=== PATIENT | female | born 1945 ===

== ENCOUNTER 2018-10-16 10:42 | Day surgery (SDC) | payer OTHER ==
[2018-10-16 10:52] VITALS: BMI 31.2
[2018-10-16 11:03] VITALS: PULSE 74; RESP 18; TEMP 97.7; O2SAT 97
[2018-10-16] MEDS ORDERED: Sodium Chloride 0.9% 1,000 ML IV SCH (11:15)
--- NOTE | 2018-10-16 11:33 | ED PDOC ---
Arrival/HPI - General Historian: Patient, Family - History of Present Illness Narrative History of Present Illness (Text): 10/16/18 11:29 Pt is a 73 yo female with a PMH of atrial fibrillation, hypertension, hyperlipidemia, migraines, TIA, GERD who presents to the ED complaining of chest pain for the past few weeks. Pt states she has been having 8/10 pressure like chest pain with exertion which radiates to her jaw, shoulders and down her left arm. Pt states the pain has gotten progressively worse and prompted her to contact Dr De La Rosa who sent her to the emergency department. Time/Duration: < month Symptom Onset: Gradual Symptom Course: Worsening Quality: Pressure Severity Level: 8 Context: Walking, Exertion <Nils Black - Last Filed: 10/16/18 17:12> <Zach Diamond DO - Last Filed: 10/16/18 19:52> - General Chief Complaint: Chest Pain Past Medical History - Infectious Disease Hx of Infectious Diseases: None - Reproductive Menopause: No - Cardiac Hx Cardiac Disorders: Yes Hx Atrial Fibrillation: Yes Hx Hypertension: Yes - Pulmonary Hx Respiratory Disorders: No - Neurological Hx Neurological Disorder: No Hx Transient Ischemic Attacks (TIA): Yes (1 month) - HEENT Hx HEENT Disorder: No - Renal Hx Renal Disorder: No - Endocrine/Metabolic Hx Endocrine Disorders: No - Hematological/Oncological Hx Blood Disorders: No - Integumentary Hx Dermatological Disorder: No - Musculoskeletal/Rheumatological Hx Musculoskeletal Disorders: No - Gastrointestinal Hx Gastrointestinal Disorders: No - Genitourinary/Gynecological Hx Genitourinary Disorders: No - Psychiatric Hx Psychophysiologic Disorder: Yes Hx Anxiety: Yes Hx Substance Use: No - Surgical History Hx Hysterectomy: Yes (1 year ago) - Anesthesia Hx Anesthesia: Yes Hx Anesthesia Reactions: No Hx Malignant Hyperthermia: No <Nils Black - Last Filed: 10/16/18 17:12> Family/Social History Family/Social History: CVA/TIA, Hypertension Smoking Status: Never Smoked Hx Alcohol Use: No Hx Substance Use: No <Nils Black - Last Filed: 10/16/18 17:12> Allergies/Home Meds <Nils Black - Last Filed: 10/16/18 17:12> <Zach Diamond DO - Last Filed: 10/16/18 19:52> Allergies/Adverse Reactions: Allergies No Known Allergies Allergy (Verified 10/16/18 10:52) Home Medications: Home Meds Medication Instructions Recorded Confirmed Apixaban [Eliquis] 5 mg PO DAILY 10/16/18 10/16/18 Aspirin [Aspirin Chewable] 81 mg PO DAILY 10/16/18 10/16/18 Clopidogrel [Plavix] 75 mg PO DAILY 10/16/18 10/16/18 Diltiazem HCl [Diltiazem ER] 180 mg PO DAILY 10/16/18 10/16/18 Escitalopram [Lexapro] 10 mg PO DAILY 10/16/18 10/16/18 Isosorbide Mononitrate [Isosorbide 30 mg PO DAILY 10/16/18 10/16/18 Mononitrate ER] Losartan [Cozaar] 100 mg PO DAILY 10/16/18 10/16/18 busPIRone [Buspar] 10 mg PO DAILY 10/16/18 10/16/18 Physical Exam Vital Signs Reviewed: Yes Vital Signs Temp Pulse Resp BP Pulse Ox 10/16/18 10:42 97.7 F 74 18 136/77 97 Temperature: Afebrile Blood Pressure: Normal Pulse: Regular Respiratory Rate: Normal Appearance: Positive for: Well-Appearing Mental Status: Positive for: Alert and Oriented X 3 - Systems Exam Head: Present: Atraumatic, Normocephalic Respiratory/Chest: Present: Clear to Auscultation, Good Air Exchange. No: Respiratory Distress, Accessory Muscle Use Cardiovascular: Present: Regular Rate and Rhythm, Normal S1, S2. No: Murmurs <Nils Black - Last Filed: 10/16/18 17:12> Vital Signs Temp Pulse Resp BP Pulse Ox 10/16/18 10:42 97.7 F 74 18 136/77 97 <Zach Diamond DO - Last Filed: 10/16/18 19:52> Medical Decision Making ED Course and Treatment: 10/16/18 12:15 CBC- WBC 11.7 CMP- K 5.7 UA EKG IVF NPO spoke with Dr De La Rosa who agrees with giving the pt 15 mg of Kayexalate pt will go to cardiac skilled laborer with Dr De La Rosa later today Pt seen, examined, assessment and plan discussed with Dr Dara Black PGY1 10/16/18 12:20 - RAD Interpretation Radiology Orders: 10/16/18 11:06 CHEST PORTABLE [RAD] Stat - Medication Orders Current Medication Orders: Sodium Chloride (Sodium Chloride 0.9%) 1,000 mls @ 100 mls/hr IV .Q10H SHIREEN <Nils Black - Last Filed: 10/16/18 17:12> - Lab Interpretations Lab Results: PT 13.4 SECONDS (9.4-12.5) H 10/16/18 11:30 INR 1.19 10/16/18 11:30 APTT 43.7 Seconds (26.9-38.3) H 10/16/18 11:30 Troponin I 0.01 ng/mL 10/16/18 11:30 NT-Pro-B Natriuret Pep 3280 pg/mL (0-450) H 10/16/18 11:30 Total Bilirubin 0.4 mg/dL (0.2-1.3) 10/16/18 11:30 AST 19 U/L (14-36) 10/16/18 11:30 ALT 15 U/L (7-56) 10/16/18 11:30 Alkaline Phosphatase 84 U/L (38-126) 10/16/18 11:30 Total Protein 7.1 g/dL (5.8-8.3) 10/16/18 11:30 Albumin 4.0 g/dL (3.0-4.8) 10/16/18 11:30 Globulin 3.0 gm/dL 10/16/18 11:30 Albumin/Globulin Ratio 1.3 (1.1-1.8) 10/16/18 11:30 Urine Color Yellow (YELLOW) 10/16/18 12:06 Urine Appearance Clear (CLEAR) 10/16/18 12:06 Urine pH 5.5 (4.7-8.0) 10/16/18 12:06 Ur Specific [place] 1.020 (1.005-1.035) 10/16/18 12:06 Urine Protein Negative mg/dL (<30 mg/dL) 10/16/18 12:06 Urine Glucose (UA) Negative mg/dL (NEGATIVE) 10/16/18 12:06 Urine Ketones Negative mg/dL (NEGATIVE) 10/16/18 12:06 Urine Blood Negative (NEGATIVE) 10/16/18 12:06 Urine Nitrate Negative (NEGATIVE) 10/16/18 12:06 Urine Bilirubin Negative (NEGATIVE) 10/16/18 12:06 Urine Urobilinogen 0.2 E.U./dL (<1 E.U./dL) 10/16/18 12:06 Ur Leukocyte Esterase Small [place]/uL (NEGATIVE) H 10/16/18 12:06 Urine RBC 1 - 3 /hpf (0-2) H 10/16/18 12:06 Urine WBC 15 - 20 /hpf (0-6) H 10/16/18 12:06 Ur Epithelial Cells 6 - 8 /hpf (0-5) H 10/16/18 12:06 Amorphous Sediment Few /hpf (NONE) 10/16/18 12:06 Urine Bacteria Many /hpf (NONE) 10/16/18 12:06 Urine Other Fiber /hpf 10/16/18 12:06 - RAD Interpretation Radiology Orders: 10/16/18 11:06 CHEST PORTABLE [RAD] Stat - Medication Orders Current Medication Orders: Discontinued Medications Sodium Chloride (Sodium Chloride 0.9%) 1,000 mls @ 100 mls/hr IV .Q10H SHIREEN Stop: 10/16/18 18:00 Last Admin: 10/16/18 12:11 Dose: 100 mls/hr eMAR Start Stop Document 10/16/18 12:11 BB (Rec: 10/16/18 12:11 BB [id number]) Intravenous Solution Start Date 10/16/18 Start Time 11:45 Sodium Polystyrene Sulfonate (Kayexalate) 15 gm PO STAT STA Stop: 10/16/18 12:21 Last Admin: 10/16/18 12:46 Dose: 15 gm <Zach Diamond DO - Last Filed: 10/16/18 19:52> - PA / SALES INSPECTOR / Resident Statement FADIA has reviewed & agrees with the documentation as recorded. FADIA has examined the patient and agrees with the treatment plan. <Nils Black - Last Filed: 10/16/18 17:12> - PA / SALES INSPECTOR / Resident Statement FADIA has reviewed & agrees with the documentation as recorded. FADIA has examined the patient and agrees with the treatment plan. <Zach Diamond DO - Last Filed: 10/16/18 19:52> Disposition/Present on Arrival - Present on Arrival Any Indicators Present on Arrival: No History of DVT/PE: No History of Uncontrolled Diabetes: No Urinary Catheter: No History of Decub. Ulcer: No History Surgical Site Infection Following: None - Disposition Have Diagnosis and Disposition been Completed?: Yes Disposition Time: 17:12 <Nils Black - Last Filed: 10/16/18 17:12> <Zach Diamond DO - Last Filed: 10/16/18 19:52> - Disposition Diagnosis: CAD (coronary artery disease) Disposition: HOSPITALIZED Condition: FAIR
[2018-10-16 11:43] LABS: BASO # 0.05 K/mm3 (0.0-2.0); BASO % 0.4 % (0.0-3.0); EOS # 0.2 (0.0-0.7); EOS % 1.4 % (1.5-5.0); HEMOGLOBIN 13.1 g/dL (12.0-16.0); LYMPH % 25.9 % (22.0-35.0); MEAN CELL VOLUME 81.6 fl (80.0-105.0); MEAN CORPUSCULAR HEMOGLOBIN 27.1 pg (25.0-35.0); MEAN CORPUSCULAR HGB CONC 33.2 g/dl (31.0-37.0); MONO # 0.8 (0.1-0.6); RBC 4.83 10^6/uL (3.5-6.1); RED CELL DISTRIBUTION WIDTH 14.4 % (11.5-14.5); WHITE BLOOD COUNT 11.7 10^3/uL (4.5-11.0)
[2018-10-16 11:55] LABS: INR 1.19; PARTIAL THROMBOPLASTIN TIME 43.7 Seconds (26.9-38.3); PROTHROMBIN TIME 13.4 SECONDS (9.4-12.5)
[2018-10-16 12:04] LABS: TROPONIN I 0.01 ng/mL
[2018-10-16 12:08] LABS: ALB/GLOB RATIO 1.3 (1.1-1.8); CALCIUM 9.4 mg/dL (8.4-10.5)
--- NOTE | 2018-10-16 12:08 | RAD ---
Date of service: 10/16/2018 HISTORY: chest pain COMPARISON: No prior. TECHNIQUE: 1 view obtained. FINDINGS: LUNGS: No active pulmonary disease. PLEURA: No significant pleural effusion identified, no pneumothorax apparent. CARDIOVASCULAR: No aortic atherosclerotic calcification present. Normal cardiac size. No pulmonary vascular congestion. OSSEOUS STRUCTURES: No significant abnormalities. VISUALIZED UPPER ABDOMEN: Normal. OTHER FINDINGS: None. IMPRESSION: No active disease.
[2018-10-16 12:25] LABS: PH,URINE 5.5 (4.7-8.0); URINE BILIRUBIN NEGATIVE (NEGATIVE); URINE BLOOD NEGATIVE (NEGATIVE); URINE GLUCOSE (UA) NEGATIVE (NEGATIVE); URINE LEUKOCYTE ESTERASE SMALL Leu/uL (NEGATIVE); URINE PROTEIN NEGATIVE mg/dL (<30 mg/dL); URINE UROBILINOGEN 0.2 E.U./dL (<1 E.U./dL)
[2018-10-16 12:29] LABS: URINE APPEARANCE CLEAR (CLEAR); URINE COLOR YELLOW (YELLOW)
[2018-10-16 12:34] LABS: URINE AMORPHOUS SEDIMENT FEW /hpf; URINE BACTERIA MANY /hpf; URINE WBC 15 - 20 /hpf (0-6)
[2018-10-16] MEDS ORDERED: Phenylephrine 10 mg/ml Inj ONE (13:03)
[2018-10-16] MEDS ORDERED: Lidocaine PF 2% (5 ml) Inj (For Cardiac Arrhy) ONE (13:03)
[2018-10-16] MEDS ORDERED: Iodixanol 320 MG/ML 100 ML BOTTLE IV ONE (13:04)
[2018-10-16] MEDS ORDERED: Iodixanol 320 MG/ML 200 ML BOTTLE IV ONE (13:04)
[2018-10-16] MEDS ORDERED: Iohexol 350mgl/ml 50 ML ONE (13:04)
[2018-10-16] MEDS ORDERED: Nitroglycerin 50mg in D5W 0 MG/0 ML BOTTLE IV ONE (13:04)
[2018-10-16] MEDS ORDERED: Midazolam 2 MG/2 ML VIAL ONE ×2 (13:42→13:46)
--- NOTE | 2018-10-16 13:54 | CARD ---
APPROVED REPORT Date of service: 10/16/2018 EKG Measurement Heart [id number] [id number] <Conclusion> Normal sinus rhythm RSR' or QR pattern in V1 suggests right ventricular conduction delay Borderline ECG
--- NOTE | 2018-10-16 18:05 | CARDCATH ---
PROCEDURE DATE: 10/16/2018 PROCEDURES: A cardiac catheterization. REFERRING PHYSICIAN: [facility]. PERFORMING PHYSICIAN: Tommy De La Rosa MD INDICATION: The patient is a 73-year-old woman who presents with progressive exertional angina. She was seen in the emergency room where she was found to have a history of hypertension, hypercholesterolemia, recent TIA as well as had an abnormal stress test down the [place]. Because of her ongoing symptoms, an emergency cardiac catheterization was performed. PROCEDURE: Left heart catheterization, coronary arteriography, left ventriculogram, supra-aortic valvular injection. The right femoral artery was cannulated with a 6-Chinese sheath. There were no complications. I performed moderate sedation which included the presence of an independent trained observer that assisted in monitoring the patient's level of consciousness and physiologic status. After administration of Versed and fentanyl, my intra-service time was 30 minutes. PROCEDURE FINDINGS: The findings on catheterization revealed a left ventricle that contracted normally. Estimated ejection fraction of 65-70%. Supra-aortic valvular injection revealed no aortic insufficiency. The patient had a left dominant circulation. The RCA revealed no critical lesions. The left main artery was unremarkable. The LAD revealed mild intimal irregularities without critical lesions. The diagonal vessels were free of significant disease. The circumflex artery was a large vessel and revealed mild intimal irregularities without critical lesions. AngioSeal was used to close the femoral artery site. The patient tolerated the procedure well. In summary, the procedure revealed normal LV function, no aortic insufficiency. IMPRESSION: 1. Left dominant circulation with mild intimal irregularities of the left anterior descending with no critical lesions noted. 2. Given these findings, the patient's chest pain is not of cardiac origin. In addition, her abnormal stress test was a false positive. PLAN: Given these findings, we will refer the patient back to her doctors down the [place]. Tommy De La Rosa MD
[2018-10-16 20:12] VITALS: BP 146/68
== END 2018-10-16 19:30 | disposition home or self-care (01) ==
LOC: ED 10:42 → CATH 12:55 → 2RSO 15:05 → CATH 19:30
PROVIDERS: ATTEND Internal Medicine Cardiovascular Disease
DX: R07.89 Other chest pain (principal); I10 Essential (primary) hypertension; E78.00 Pure hypercholesterolemia, unspecified; E78.5 Hyperlipidemia, unspecified; F41.9 Anxiety disorder, unspecified; K21.9 Gastro-esophageal reflux disease without esophagitis; I48.91 Unspecified atrial fibrillation; Z79.01 Long term (current) use of anticoagulants; Z79.82 Long term (current) use of aspirin; Z86.73 Personal history of transient ischemic attack (TIA), and cerebral infarction without residual deficits; Z82.3 Family history of stroke; Z82.49 Family history of ischemic heart disease and other diseases of the circulatory system
CPT/HCPCS: 71045; 80053; 81001; 83735; 83880; 84484; 85025; 85610; 85730; 86850; 86900; 87086; 93005; 93458; 99152; 99285; C1760; C1769; C2629; J1644; J2250; J3010; J7030; Q9966